=== PATIENT | female | born 1945 | race Caucasian/White ===

== ENCOUNTER 2019-03-30 08:54 | Outpatient (REF) | payer MEDICARE, BC, SELFPAY ==
[2019-03-30 21:55] LABS: Absolute Basophil Count 0.03 k/cumm (0.0-0.2); Absolute Eosinophil Count 0.13 k/cumm (0.0-0.7); Absolute Lymphocyte Count 1.07 k/cumm (1.2-3.4); Absolute Monocyte Count 0.27 k/cumm (0.11-0.7); Absolute Neutrophil Count 2.36 k/cumm (1.2-6.7); Basophils % 0.8; Eosinophils % 3.4; HCT 42.8 % (36.0-46.0); HGB 14.7 g/dL (12.0-15.5); Lymphocytes % 27.7; Mean Corp. HGB Concentration 34.3 g/dL (32.0-36.0); Mean Corpuscular Hemoglobin 32.7 pg (27.0-33.0); Mean Corpuscular Volume 95.1 fL (80-95); Neutrophils % 61.1; Platelet Count 227 x1000/uL (130-400); RBC Distribution Width 12.8 % (11.7-14.6); White Blood Cell Count 3.86 k/cumm (4.4-10.8)
[2019-03-30 22:31] LABS: ALT 29 U/L (12-78); AST 19 U/L (15-37); Alkaline Phosphatase 106 U/L (46-116); Anion Gap 9.8 mmol/L (3-11); BUN 15 mg/dL (7-18); Bilirubin, Total 0.8 mg/dL (0.2-1.0); CO2 28.2 mmol/L (21.0-32.0); CREATININE 0.72 mg/dL (0.55-1.02); Calculated LDL 146 mg/dL; Chloride 108 mmol/L (98-107); Cholesterol 227 mg/dL (50-200); Glucose 97 mg/dL (70-100); HDL Cholesterol 70 mg/dL (40-60); Potassium 3.8 mmol/L (3.5-5.1); Sodium 146 mmol/L (136-145); TSH (W/Ref FT4) 1.08 uIU/mL (0.36-3.74); Total Protein 6.7 g/dL (6.4-8.2); Triglyceride 55 mg/dL (30-150); Vitamin B12 1070 pg/mL (193-986)
== END 2019-03-30 09:14 ==
LOC: NCHCN 08:54
PROVIDERS: PCP Family Medicine; Visit Provider Family Medicine
DX: R53.83 Other fatigue (principal); M85.80 Other specified disorders of bone density and structure, unspecified site; E78.89 Other lipoprotein metabolism disorders; M17.0 Bilateral primary osteoarthritis of knee; G62.9 Polyneuropathy, unspecified
CPT/HCPCS: 80053; 80061; 82306; 83721; 82607; 84443; 85025

== ENCOUNTER 2020-06-30 12:20 | Outpatient (REF) | payer MEDICARE, BC, SELFPAY ==
[2020-06-30 21:14] LABS: Abs Immature Grans 0.01 10^3/uL (0.0-0.06); Absolute Basophil Count 0.04 10^3/uL (0.0-0.2); Absolute Eosinophil Count 0.22 10^3/uL (0.0-0.7); Absolute Lymphocyte Count 0.99 10^3/uL (1.2-3.4); Absolute Monocyte Count 0.29 10^3/uL (0.1-0.8); Absolute Neutrophil Count 2.91 10^3/uL (1.2-6.7); Basophils % 0.9; Eosinophils % 4.9; HCT 38.8 % (36.0-46.0); HGB 14.3 g/dL (11.2-15.7); Immature Grans % 0.2; Lymphocytes % 22.2; MCH 36.6 pg (27.0-33.0); MCHC 36.9 % (32.0-36.0); MCV 99.2 fL (80-95); MPV 11.3 fL (8.0-11.0); Monocytes % 6.5; Neutrophils % 65.3; Nucleated RBC 0 %; Platelet Count 157 10^3/uL (130-400); RBC 3.91 10^6/uL (3.93-5.22); RDW 13.3 % (11.7-14.6); RDW-SD 42.2 fL; WBC 4.46 10^3/uL (4.4-10.8)
[2020-06-30 21:51] LABS: ALT 19 U/L (14-59); AST 18 U/L (15-37); Albumin 3.7 g/dL (3.4-5.0); Alkaline Phosphatase 106 U/L (46-116); Anion Gap 5.7 mmol/L (3-11); BUN 21 mg/dL (7-18); Bilirubin, Total 1.2 mg/dL (0.2-1.0); CO2 30.3 mmol/L (21.0-32.0); CREATININE 0.72 mg/dL (0.55-1.02); Chloride 107 mmol/L (98-107); Glucose 85 mg/dL (74-106); Potassium 3.7 mmol/L (3.5-5.1); Sodium 143 mmol/L (136-145); Total Protein 6.4 g/dL (6.4-8.2)
[2020-07-01 18:14] LABS: Folate 12.6 ng/mL (8.6-20.0); Vitamin B12 739 pg/mL (193-986)
== END 2020-06-30 12:40 ==
LOC: NCHCN 12:20
PROVIDERS: PCP Family Medicine; Visit Provider Family Medicine
DX: R10.11 Right upper quadrant pain (principal); D75.89 Other specified diseases of blood and blood-forming organs
CPT/HCPCS: 80053; 82607; 82746; 85025

== ENCOUNTER 2021-08-11 16:05 | Outpatient (REF) | payer MEDICARE, BC, SELFPAY ==
--- NOTE | 2021-08-11 15:30 | SKI_PTH ---
PATIENT: Kelley Perla LOC: NCN #:[id number] AGE/SX: 75/F ROOM: RE08/11/[address]: Pratibha Harris : 1945 BED: DIS: 08/11/2021 SPEC #: [id number] RECD: 08/14/21 12:35 STATUS: RU REQ #: [id number] DILMA: 08/11/21 15:[address]: Pratibha Harris DEPT: Surgical Specimen RECD BY: Lilli Lemon Tissues: 1 - SKIN BIOPSY(SHAVE/PUNCH) Procedures: SKIN LEVEL 4 Comments: [id number]
== END 2021-08-11 16:06 | disposition home or self-care (01) ==
LOC: NCHCN 16:05
PROVIDERS: PCP Family Medicine; Visit Provider Family Medicine
DX: C44.529 Squamous cell carcinoma of skin of other part of trunk (principal)
CPT/HCPCS: 88305

== ENCOUNTER 2022-01-02 15:22 | Outpatient (REF) | payer MEDICARE, SELFPAY ==
[2022-01-02 14:45] LABS: Anion Gap 6.8 mmol/L (3-11); BUN 27 mg/dL (7-18); CO2 27.2 mmol/L (21.0-32.0); CREATININE 0.6 mg/dL (0.55-1.02); Calcium 8.8 mg/dL (8.5-10.1); Calculated LDL 132 mg/dL (<100); Chloride 110 mmol/L (98-107); Cholesterol 221 mg/dL (<200); Glucose 93 mg/dL (74-106); HDL Cholesterol 74 mg/dL (40-60); Sodium 144 mmol/L (136-145); Triglyceride 77 mg/dL (<150)
== END 2022-01-02 15:23 | disposition home or self-care (01) ==
LOC: NCHCN 15:22
PROVIDERS: PCP Family Medicine; Visit Provider Family Medicine
DX: Z00.00 Encounter for general adult medical examination without abnormal findings (principal)
CPT/HCPCS: 80048; 80061

== ENCOUNTER 2023-01-14 13:07 | Outpatient (REF) | payer MEDICARE, SELFPAY | END 2023-01-14 13:08 | disposition home or self-care (01) | LOC: NCHCN 13:07 | PROVIDERS: PCP Family Medicine; Visit Provider Family Medicine | DX: N39.0 Urinary tract infection, site not specified (principal) | CPT/HCPCS: 87077; 87086; 87186 ==

== ENCOUNTER 2023-02-14 17:24 | Outpatient (REF) | payer MEDICARE, SELFPAY ==
--- OUTSIDE RECORDS SUMMARY | 2023-02-14 17:26 | XMS_ITS | CCD ---
Author Name Unknown Address [address] [place] [address] [phone] Organization Unknown Address [address] [place], [place] [id number] Care Team Providers Care Thermometer Maker Name Role Phone NERISSA CORTEZ Attending Physician [phone] Vital Signs Unknown or Not Available. Allergies Unknown or Not Available. Procedures Unknown or Not Available. History of Immunizations Unknown or Not Available. Problems Unknown or Not Available. Results Unknown or Not Available. Active Medications Unknown or Not Available. Medications Administered During Visit Unknown or Not Available. Encounters Encounter Diagnosis Diagnosis Code Start Date Inconclusive mammography finding [id number] 09/26/2021 Social History Smoking Status Code Start Date End Date Never smoker [id number] Patient Decision Aids Unknown or Not Available. Discharge Instructions You were admitted to [facility] on 09/26/2021 12:54 with a principal diagnosis of Other abnormal and inconclusive findings on diagnostic imaging of breast You were discharged from [facility] on 09/26/2021 12:54 Should you have any questions prior to discharge, please contact a member of your healthcare team. If you have left the hospital and have any questions, please contact your primary care physician. Chief Complaint and Reason For Visit Chief Complaint Date of Onset R BREAST CALLBACK09/19/21 Function Status Unknown or Not Available. Plan of Care Unknown or Not Available. Referral/Transition of Care Unknown or Not Available.
--- OUTSIDE RECORDS SUMMARY | 2023-02-14 17:27 | XMS_ITS | CCD ---
Author Name Unknown Address [address] [place] [address] [phone] Organization Unknown Address [address] [place], [place] [phone] Care Team Providers Care Plugger Name Role Phone INES SEGAL Attending Physician [phone] INES SEGAL Rounding (Secondary) Physician [phone] Vital Signs Unknown or Not Available. Allergies Unknown or Not Available. Procedures Unknown or Not Available. History of Immunizations Unknown or Not Available. Problems Unknown or Not Available. Results Unknown or Not Available. Active Medications Unknown or Not Available. Medications Administered During Visit Unknown or Not Available. Encounters Encounter Diagnosis Diagnosis Code Start Date Idiopathic osteoarthritis [id number] 2021 Social History Smoking Status Code Start Date End Date Never smoker [id number] Patient Decision Aids Unknown or Not Available. Discharge Instructions You were admitted to [facility] on 06/19/2022 14:55 with a principal diagnosis of Unilateral primary osteoarthritis, right hip You were discharged from [facility] on 06/19/2022 00:00 Should you have any questions prior to discharge, please contact a member of your healthcare team. If you have left the hospital and have any questions, please contact your primary care physician. Chief Complaint and Reason For Visit Unknown or Not Available. Function Status Unknown or Not Available. Plan of Care Unknown or Not Available. Referral/Transition of Care Unknown or Not Available.
--- OUTSIDE RECORDS SUMMARY | 2023-02-14 17:27 | XMS_ITS | CCD ---
Author Name Unknown Address [address] [place] [address] [phone] Organization Unknown Address [address] [place] [address] [phone] Care Team Providers Care Youth Coordinator Name Role Phone INES SEGAL Attending Physician [phone] Vital Signs Unknown or Not Available. Allergies Unknown or Not Available. Procedures Unknown or Not Available. History of Immunizations Unknown or Not Available. Problems Unknown or Not Available. Results BASIC METABOLIC PANEL (BMP) - Collect Date/Time: 06/21/2022 09:25 Test Name Code Test Result Test Units Test Ref Rang e GLUCOSE 2345-7 75 mg/dL L=70 H=116 BUN 3094-0 25 mg/dL L=6 H=25 CREATININE 2160-0 0.74 mg/dL L=0.51 H=0.95 SODIUM SERUM 2951-2 140 mmol/L L=136 H=145 POTASSIUM SERUM 2823-3 3.6 mmol/L L=3.4 H=5 .2 CHLORIDE SERUM 2075-0 106 mmol/L L=96 H=110 CARBON DIOXIDE (CO2) 2028-9 29 mmol/L L=22 H=34 ANION GAP 74495-9 5.1 mmol/L CALCIUM SERUM 83139-0 8.8 mg/dL L=8.2 H=10. 2 AGE 76 years eGFR (non-Afr.Amer.) 51807-4 77 mL/min eGFR (Afr-Egyptian) 81515-6 93 mL/min CBC W/ DIFFERENTIAL* - Colle ct Date/Time: 06/21/2022 09:25 Test Name Code Test Result Test Units Test Ref Rang e WBC 6690-2 3.75 th/cmm L=5.00 H=10.00 NEUT % 61.1 % L=40.0 H=80.0 LYMPH % 25.6 % L=10.0 H=50.0 MONO % 80719-7 7.2 % L=2.0 H=12.0 EOS % 4.5 % L=0.0 H=8.0 BASO % 1.3 % L=0.0 H=3.0 IG % 2514-8 0.3 % L=0.0 H=1.1 NRBC % 81786-9 0.0 % L=0.0 H=0.0 NEUT abs count 751-8 2.3 th/cmm L=1.6 H=8. 4 LYMPH abs count 731-0 1.0 th/cmm L=1.5 H=4 .0 MONO abs count 742-7 0.3 th/cmm L=0.2 H=1. 0 EOS abs count 711-2 0.2 th/cmm L=0.0 H=0.5 BASO abs count 704-7 0.1 th/cmm L=0.0 H=0. 2 IG abs count 23518-4 0.0 th/cmm L=0.0 H=0.1 NRBC abs count 26666-6 0.0 mil/cmm L=0.0 H=0. 0 RBC 789-8 4.44 mil/cmm L=3.90 H=5.40 HEMOGLOBIN 718-7 13.9 gm/dL L=12.0 H=16.0 HEMATOCRIT 4544-3 42 % L=37 H=47 MCV 787-2 94 fL L=82 H=92 MCH 785-6 31.3 pg L=27.0 H=31.0 MCHC 786-4 33.5 % L=32.0 H=36.0 RDW-SD 788-0 42.5 fL L=39.0 H=49.0 PLATELET COUNT 777-3 239 th/cmm L=150 H=45 0 PT PROTHROMBIN TIME* - Colle ct Date/Time: 06/21/2022 09:25 Test Name Code Test Result Test Units Test Ref Rang e PROTIME 5902-2 9.8 seconds L=9.3 H=11.4 INR 63361-8 0.98 L=2.00 H=3.00 MRSA/MSSA NASAL COMPLETE BY PCR* - Collect Date/Time: 06/21/2022 09:25 Test Name Code Test Result Test Units Test Ref Rang e MRSA 00694-8 NEGATIVE N/A Normal: Negati ve MSSA NEGATIVE N/A Normal: Negati ve TYPE AND SCREEN* - Collect D ate/Time: 06/21/2022 09:25 Test Name Code Test Result Test Units Test Ref Rang e Blood Group 883-9 A N/A Rh (D) 58367-3 POSITIVE N/A Antibody Screen 1005-8 NEGATIVE N/A Active Medications Unknown or Not Available. Medications Administered During Visit Unknown or Not Available. Encounters Encounter Diagnosis Diagnosis Code Start Date Encounter for other preprocedural examination Z0 1818 06/21/2022 Social History Smoking Status Code Start Date End Date Never smoker [id number] Patient Decision Aids Unknown or Not Available. Discharge Instructions You were admitted to [facility] on 06/21/2022 06:38 with a principal diagnosis of Encounter for other preprocedural examination You had the following tests done:BASIC METABOLIC PANEL (BMP)CBC W/ DIFFERENTIAL*MRSA/MSSA NASAL COMPLETE BY PCR*PT PROTHROMBIN TIME*TYPE AND SCREEN* You were discharged from [facility] on 06/21/2022 06:38 Should you have any questions prior to [...]
--- OUTSIDE RECORDS SUMMARY | 2023-02-14 17:27 | XMS_ITS | CCD ---
Author Name Unknown Address [address] [place] [address] [phone] Organization Unknown Address [address] [place], [place] [phone] Care Team Providers Care Fish Salter Name Role Phone NERISSA CORTEZ Attending Physician [phone] Vital Signs Unknown or Not Available. Allergies Unknown or Not Available. Procedures Unknown or Not Available. History of Immunizations Unknown or Not Available. Problems Unknown or Not Available. Results Unknown or Not Available. Active Medications Unknown or Not Available. Medications Administered During Visit Unknown or Not Available. Encounters Encounter Diagnosis Diagnosis Code Start Date Mammographic microcalcificat ion found on diagnostic imaging of breast R920 05/01/2022 Social History Smoking Status Code Start Date End Date Never smoker [id number] Patient Decision Aids Unknown or Not Available. Discharge Instructions You were admitted to on 05/01/2022 12:51 with a principal diagnosis of Mammographic microcalcification found on diagnostic imaging of breast You were discharged from on 05/01/2022 12:51 Should you have any questions prior to discharge, please contact a member of your healthcare team. If you have left the hospital and have any questions, please contact your primary care physician. Chief Complaint and Reason For Visit Chief Complaint Date of Onset 6 month follow- up Function Status Unknown or Not Available. Plan of Care Unknown or Not Available. Referral/Transition of Care Unknown or Not Available.
--- OUTSIDE RECORDS SUMMARY | 2023-02-14 17:27 | XMS_ITS | CCD ---
Author Name Unknown Address [address] [place] [address] [phone] Organization Unknown Address [address] [place], [place] [phone] Care Team Providers Care Tractor Operator Helper Name Role Phone BREANNE ABBOTT Attending Physician [phone] BREANNE ABBOTT Rounding (Secondary) Physician [phone] Vital Signs Unknown or Not Available. Allergies Unknown or Not Available. Procedures Unknown or Not Available. History of Immunizations Unknown or Not Available. Problems Unknown or Not Available. Results Unknown or Not Available. Active Medications Unknown or Not Available. Medications Administered During Visit Unknown or Not Available. Encounters Encounter Diagnosis Diagnosis Code Start Date Idiopathic osteoarthritis [id number] 2021 Social History Smoking Status Code Start Date End Date Never smoker [id number] Patient Decision Aids Unknown or Not Available. Discharge Instructions You were admitted to [facility] on 11/06/2021 13:11 with a principal diagnosis of Unilateral primary osteoarthritis, right hip You were discharged from [facility] on 11/06/2021 00:00 Should you have any questions prior [...]
--- OUTSIDE RECORDS SUMMARY | 2023-02-14 17:27 | XMS_ITS | CCD ---
Author Name Unknown Address [address] [place] [address] [phone] Organization Unknown Address [address] [place] [address] [phone] Care Team Providers Care Device Engineer Name Role Phone NERISSA CORTEZ Attending Physician [phone] Vital Signs Unknown or Not Available. Allergies Unknown or Not Available. Procedures Unknown or Not Available. History of Immunizations Unknown or Not Available. Problems Unknown or Not Available. Results Unknown or Not Available. Active Medications Unknown or Not Available. Medications Administered During Visit Unknown or Not Available. Encounters Encounter Diagnosis Diagnosis Code Start Date Other specified disorders of bone density and structure, multiple sites M8589 02/08/2022 Social History Smoking Status Code Start Date End Date Never smoker [id number] Patient Decision Aids Unknown or Not Available. Discharge Instructions You were admitted to [facility] on 02/08/2022 13:52 with a principal diagnosis of Other specified disorders of bone density and structure, multiple sites You were discharged from [facility] on 02/08/2022 13:52 Should you have any questions prior to discharge, please contact a member of your healthcare team. If you have left the hospital and have any questions, please contact your primary care physician. Chief Complaint and Reason For Visit Chief Complaint Date of Onset OSTEOPENIA POSTMENOPAUSAL Function Status Unknown or Not Available. Plan of Care Unknown or Not Available. Referral/Transition of Care Unknown or Not Available.
--- OUTSIDE RECORDS SUMMARY | 2023-02-14 17:27 | XMS_ITS | CCD ---
Author Name Unknown Address [address] [place] [address] [phone] Organization Unknown Address [address] [place] [address] [phone] Care Team Providers Care Banner Painter Name Role Phone INES SEGAL Attending Physician [phone] Vital Signs Unknown or Not Available. Allergies Allergy Code Allergy Type Reaction Status No Known Drug Allergies 0 No known drug allergies Active Procedures Unknown or Not Available. History of Immunizations Unknown or Not Available. Problems Unknown or Not Available. Results Unknown or Not Available. Active Medications Unknown or Not Available. Medications Administered During Visit Unknown or Not Available. Encounters Encounter Diagnosis Diagnosis Code Start Date Aftercare following joint replacement surgery Z4 71 08/08/2022 Social History Smoking Status Code Start Date End Date Never smoker [id number] Patient Decision Aids Unknown or Not Available. Discharge Instructions You were admitted to [facility] on 08/08/2022 09:49 with a principal diagnosis of Aftercare following joint replacement surgery You were discharged from [facility] on 09/07/2022 14:53 Should you have any questions prior to [...]
--- OUTSIDE RECORDS SUMMARY | 2023-02-14 17:27 | XMS_ITS | CCD ---
Author Name Unknown Address [address] [place] [address] [phone] Organization Unknown Address [address] [place] [address] [phone] Care Team Providers Care Reo Asset Manager Name Role Phone INES SEGAL Attending Physician [phone] Vital Signs Unknown or Not Available. Allergies Allergy Code Allergy Type Reaction Status No Known Drug Allergies 0 No known drug allergies Active Procedures Unknown or Not Available. History of Immunizations Unknown or Not Available. Problems Unknown or Not Available. Results MARTARADHA HERRERAX* - Shaun ect Date/Time: 07/16/2022 09:41 Test Name Code Test Result Test Units Test Ref Rang e Tier- 27120-4 PRE-OP N/A SARS COV2 RNA: 15749-2 NEGATIVE N/A REFERENCE RANGE: NEGAT Active Medications Unknown or Not Available. Medications Administered During Visit Unknown or Not Available. Encounters Encounter Diagnosis Diagnosis Code Start Date Pre-surgery testing [id number] 07/16/2022 Social History Smoking Status Code Start Date End Date Never smoker [id number] Patient Decision Aids Unknown or Not Available. Discharge Instructions You were admitted to [facility] on 07/16/2022 21:31 with a principal diagnosis of Encounter for preprocedural laboratory examination You had the following tests done:MARTA NEGRONID RHEONIX* You were discharged from [facility] on 07/16/2022 21:31 Should you have any questions prior to [...]
--- OUTSIDE RECORDS SUMMARY | 2023-02-14 17:28 | XMS_ITS | CCD ---
Author Name Unknown Address [address] [place] [address] [phone] Organization Unknown Address [address] [place], [place] [phone] Care Team Providers Care Debubblizer Name Role Phone NERISSA CORTEZ Attending Physician [phone] Vital Signs Unknown or Not Available. [...] Encounter Diagnosis Diagnosis Code Start Date Other abnormal and inconclus juancarlos findings on diagnostic imaging of breast R928 10/30/2022 Social History Smoking Status Code Start Date End Date Never smoker [id number] Patient Decision Aids Unknown or Not Available. Discharge Instructions You were admitted to [facility] on 10/30/2022 08:32 with a principal diagnosis of Other abnormal and inconclusive findings on diagnostic imaging of breast You were discharged from [facility] on 10/30/2022 08:32 Should you have any questions prior to discharge, please contact a member of your healthcare team. If you have left the hospital and have any questions, please contact your primary care physician. Chief Complaint and Reason For Visit Chief Complaint Date of Onset 6 MONTH FU Function Status Unknown or Not Available. Plan of Care Unknown or Not Available. Referral/Transition of Care Unknown or Not Available.
--- OUTSIDE RECORDS SUMMARY | 2023-02-14 17:28 | XMS_ITS | CCD ---
Author Name Unknown Address [address] [place] [address] [phone] Organization Unknown Address [address] [place] [address] [phone] Care Team Providers Care Cherry Sorter Name Role Phone INES SEGAL MD Attending Physician [phone] Vital Signs Unknown or Not Available. Allergies Unknown or Not Available. Procedures Procedure Code Procedure Type Date Arthrocentesis Aspir&/[place] [address] CPT 05/10/2021 History of Immunizations Unknown or Not Available. Problems Unknown or Not Available. Results Unknown or Not Available. Active Medications Unknown or Not Available. Medications Administered During Visit Unknown or Not Available. Encounters Encounter Diagnosis Diagnosis Code Start Date Unilateral primary osteoarthritis, right hip M16 11 05/10/2021 Social History Smoking Status Code Start Date End Date Never smoker [id number] Patient Decision Aids Unknown or Not Available. Discharge Instructions You were admitted to [facility] on 05/10/2021 06:45 with a principal diagnosis of Unilateral primary osteoarthritis, right hip You had the following procedures done:Arthrocentesis Aspir&/Inj Major Jt/Bursa w/o US You were discharged from [facility] on 05/10/2021 06:45 Should you have any questions prior to [...]
== END 2023-02-14 17:25 | disposition home or self-care (01) ==
LOC: NCHCN 17:24
PROVIDERS: PCP Family Medicine; Visit Provider Family Medicine
DX: N30.90 Cystitis, unspecified without hematuria (principal)
CPT/HCPCS: 87086

== ENCOUNTER 2024-01-10 11:14 | Outpatient (REF) | payer MEDICARE, SELFPAY ==
[2024-01-10 14:19] LABS: HCT 42.5 % (36.0-46.0); HGB 13.9 g/dL (11.2-15.7); MCH 30.3 pg (27.0-33.0); MCHC 32.7 % (32.0-36.0); MCV 93 fL (80-95); MPV 10.2 fL (8.0-11.0); Platelet Count 310 10^3/uL (130-400); RBC 4.58 10^6/uL (3.93-5.22); RDW 12.7 % (11.7-14.6); RDW-SD 43.5 fL
[2024-01-10 15:00] LABS: ALT 20 U/L (14-59); AST 18 U/L (15-37); Albumin 3.8 g/dL (3.4-5.0); Alkaline Phosphatase 106 U/L (46-116); Anion Gap 5.9 mmol/L (3-11); BUN 24 mg/dL (7-18); CO2 30.1 mmol/L (21.0-32.0); CREATININE 0.8 mg/dL (0.55-1.02); Calculated LDL 166 mg/dL (<100); Chloride 107 mmol/L (98-107); Cholesterol 266 mg/dL (<200); Estimated GFR 75.84 (mL/min/1.73m2); FREE T4 0.91 ng/dL (0.76-1.46); Glucose 94 mg/dL (74-106); HDL Cholesterol 91 mg/dL (40-60); Potassium 3.9 mmol/L (3.5-5.1); Sodium 143 mmol/L (136-145); TSH 1.47 uIU/Ml (0.36-3.74); Total Protein 7.1 g/dL (6.4-8.2); Triglyceride 49 mg/dL (<150); Vitamin B12 549 pg/mL (193-986)
[2024-01-13 14:27] LABS: Albumin g/dL 4.2 g/dL (3.6-5.2); Immunotyping, Serum (See Note); Total Protein 6.6 g/dL (6.3-8.2)
== END 2024-01-10 11:15 | disposition home or self-care (01) ==
LOC: NCHCN 11:14
PROVIDERS: PCP Family Medicine; Visit Provider Family Medicine
DX: Z00.00 Encounter for general adult medical examination without abnormal findings (principal); G60.9 Hereditary and idiopathic neuropathy, unspecified
CPT/HCPCS: 80053; 80061; 85027; 82607; 84155; 84165; 84439; 84443; 86320; 87480; 87510; 87660

== ENCOUNTER 2025-04-26 16:15 | Outpatient (REF) | payer MEDICARE, SELFPAY | END 2025-04-26 16:16 | disposition home or self-care (01) | LOC: NCHCN 16:15 | PROVIDERS: PCP Family Medicine; Visit Provider Family Medicine | DX: R30.0 Dysuria (principal) | CPT/HCPCS: 87077; 87086; 87186 ==